=== PATIENT | female | born 1980 | race Two or more races ===

== ENCOUNTER 2023-04-22 18:28 | Emergency (ER) | payer OTHER, SELFPAY ==
[2023-04-22 19:02] VITALS: BP 127/80; PULSE 73; RESP 16; TEMP 36.6; O2SAT 100; BMI 32.5
--- NOTE | 2023-04-22 19:03 | ED.GENADULT ---
HPI - General Adult General Chief complaint: Extremity Injury, Upper Stated complaint: LT arm pain Time Seen by Provider: 04/22/23 19:05 Source: patient Mode of arrival: ambulatory Limitations: no limitations History of Present Illness HPI narrative: 43-year-old female previously healthy, up-to-date with immunizations presents the ER with complaints of left arm pain swelling. Patient reports she 2 days ago she had a tattoo done to the left forearm. Since then she has had some increasing and local pain and swelling to the area. No fevers, chills, numbness,tingling. Related Data Previous Rx's Medication Instructions Recorded sulfamethoxazole 800 1 tab PO BID 7 days #14 tabs 04/22/23 mg-trimethoprim 160 mg tablet (Bactrim DS) Allergies Allergy/AdvReac Type Severity Reaction Status Date / Time No Known Allergies Allergy Verified 04/22/23 19:07 Review of Systems Review of Systems: Yes all other systems are reviewed and are negative Constitutional: Constitutional: Reports no additional constitutional complaints, Denies body ache(s), Denies chills, Denies fever(s), Denies headache(s) and Denies weakness Eyes: Eyes: Reports no additional eye complaints and Denies change in vision ENT: Reports system reviewed and no additional complaints, except as documented, Denies dizziness, Denies headache(s), Denies nasal congestion, Denies nasal discharge and Denies neck pain Cardiovascular: Cardiovascular: Reports no additional cardiovascular complaints, Denies chest pain, Denies leg edema and Denies dyspnea Respiratory: Respiratory: Reports no additional respiratory complaints, Denies cough and Denies dyspnea Gastrointestinal: Gastrointestinal: Reports no additional gastrointestinal complaints, Denies abdominal pain, Denies diarrhea, Denies nausea and Denies vomiting Genitourinary: Genitourinary: Reports no additional female genitourinary complaints and Denies urinary incontinence Musculoskeletal: Musculoskeletal: Reports no additional musculoskeletal complaints, Denies back pain, Denies arthralgias, Denies joint swelling, Denies neck pain, Denies numbness and Denies tingling Integumentary/Breasts: Skin/Breast: Reports system reviewed and no additional complaints, except as docu, Reports swelling, Denies erythema and Denies rash Neurologic: Reports system reviewed and no additional complaints, except as documented, Denies Abnormal speech present, Denies dizziness, Denies headache(s), Denies numbness, Denies tingling and Denies weakness [facility] Past Medical History Attestation statement: The following information was validated with the patient. Source: old records reviewed and nursing notes reviewed Physical Exam ED Vital Signs: Vital Signs - 24 hr 04/22/23 19:02 Temperature 97.9 F Pulse Rate 73 Respiratory Rate 16 Blood Pressure 127/80 Pulse Oximetry 100 Oxygen Delivery Method Room Air BMI result Body Mass Index 32.5 Const General: cooperative, healthy appearing, comfortable and no acute distress Orientation/consciousness: patient oriented x3 Limitations: no limitations HENMT Head: Yes normal to inspection Ears: hearing grossly normal bilaterally General nose exam: Normal external nose present Face and sinus: Yes normal facial exam Mouth: Normal oral and palatal mucosa present Throat: Yes posterior oropharynx normal Eyes General: appearance normal, both eyes and all related structures Pupils: Equal, round and reactive pupils present Neck Neck: Yes normal visual inspection Chest Chest palpation & inspection: normal inspection of the chest Resp Effort & Inspection: normal respiratory effort Auscultation: clear to auscultation bilaterally Cardio Rate: regular rate Rhythm: regular rhythm Peripheral pulses: Peripheral pulses 2+ throughout GI Inspection: Yes normal to inspection Palpation (GI): Soft to palpation and nontender Auscultation: normal bowel sounds Back/Spine/Pelvis Thoracic/Lumbar Spine: thoracic and lumbar spine normal to inspection Skin General skin exam: no rashes or lesions noted Neuro General: patient oriented x3, no focal motor deficits and normal sensation to monofilament Cranial nerves: Yes Equal, round and reactive pupils present Cognition (Neuro): normal cognition Speech: No Abnormal speech present Gait exam (Neuro): Normal gait present Motor exam (neuro): 5/5 motor strength present throughout Extrem Other: the compartments are soft and compressible. There is no tenderness on palpation. There are normal radial and ulnar pulses. Normal active and passive range of motion to the left forearm, left wrist and left hand. Normal sensation. There is slight warmth. There is mild swelling. I do not appreciate any erythema. Medical Decision Making Medical Decision Making [facility] Narrative: 43-year-old female previously healthy, up-to-date with immunizations presents the ER with complaints of left arm pain swelling. Patient reports she 2 days ago she had a tattoo done to the left forearm. Since then she has had some increasing and local pain and swelling to the area. No fevers, chills, numbness,tingling. To the left forearm the compartments are soft and compressible. There is no tenderness on palpation. There are normal radial and ulnar pulses. Normal active and passive range of motion to the left forearm, left wrist and left hand. Normal sensation. There is slight warmth. There is mild swelling. I do not appreciate any erythema. I discussed the patient that this may be inflammatory as she had recent trauma to the area. There may also be a very mild cellulitis. I will put her on antibiotics to be cautious. I did recommend that she elevate the arm, apply ice, use NSAIDs for swelling and pain. She should return for any worsening symptoms which were reviewed with her. Differential Diagnosis Differential Diagnoses: The differential diagnosis associated with the presentation includes Inflammatory reaction, cellulitis low concern for necrotizing fasciitis, compartment syndrome, DVT- patient nontoxic, afebrile, compartments are soft and compressible, no risk factors for DVT Admission/Observation Consideration of admission/observation: Escalation of care including admission/observation considered low concern for necrotizing fasciitis or compartment syndrome requiring further imaging, consultation and or admission Tests considered The following testing was considered but not selected: low concern for necrotizing fasciitis or compartment syndrome requiring further imaging, Prescription Management I considered prescription management with: Antibiotic Discharge Plan Discharge Clinical Impression: Cellulitis Patient Disposition: Home, Self-Care Instructions: Cellulitis (ED) Additional Instructions: elevate the arm Use ice to the affected area Take Motrin or Tylenol for pain as needed Return for increasing swelling, increasing redness, increasing pain, fever greater than 100.4. Take the antibiotics as prescribed Prescriptions: New sulfamethoxazole-trimethoprim [Bactrim DS] 800-160 mg tablet 1 tab PO BID 7 Days Qty: 14 0RF Referrals: Physician,Unknown J [Primary Care Provider] - 1 week
== END 2023-04-22 19:14 | disposition home or self-care (01) ==
LOC: HO.ED 19:13
PROVIDERS: Emergency Provider Student in an Organized Health Care Education/Training Program
DX: L03.114 Cellulitis of left upper limb (principal); M79.602 Pain in left arm
CPT/HCPCS: 99282; 99283

== ENCOUNTER 2024-05-03 17:48 | Emergency (ER) | payer OTHER, SELFPAY ==
--- NOTE | ~2024-05-03 | XR_ITS ---
EXAMINATION: XR HAND/WRIST, LEFT CLINICAL INFORMATION: pain COMPARISON: None available. TECHNIQUE: PA, lateral, and oblique views of the left hand and wrist. FINDINGS: The bones and soft tissues are normal. No fracture. Alignment is anatomic. Joint spaces are maintained. No erosions or soft tissue calcifications. XR/XR hand wrist LT IMPRESSION: Normal radiographs of the hand and wrist. Electronically signed by: Naif Ellis MD 05/03/2024 08:57 PM MAIRA HANSEN
[2024-05-03 18:24] VITALS: BP 125/63; PULSE 67; RESP 16; TEMP 37.2; O2SAT 100; BMI 32.0
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
[2024-05-03 20:02] VITALS: BP 108/68; PULSE 55; RESP 16; TEMP 36.9; O2SAT 100
[2024-05-03 20:03] VITALS: BP 108/68; PULSE 55; RESP 16; TEMP 36.9; O2SAT 100
== END 2024-05-03 20:04 | disposition home or self-care (01) ==
PROVIDERS: Emergency Provider Internal Medicine
DX: S16.1XXA Strain of muscle, fascia and tendon at neck level, initial encounter (principal); S63.502A Unspecified sprain of left wrist, initial encounter; V43.52XA Car driver injured in collision with other type car in traffic accident, initial encounter; Y93.89 Activity, other specified; Y92.414 Local residential or business street as the place of occurrence of the external cause; Y99.9 Unspecified external cause status
CPT/HCPCS: 73110; 73130; 99283